=== PATIENT | male | born 1995 | race Caucasian/White ===

== ENCOUNTER 2023-09-06 15:30 | Inpatient (IN) | payer BC ==
[~2023-09-06] VITALS: Ht 182.9 cm; Wt 108.4 kg
[2023-09-06 15:31] VITALS: BP_SYST 83; PULSE 260; RESP 22; TEMP 97; O2SAT 92
[2023-09-06] MEDS ORDERED: AMIODARONE HCL 150 MG/3ML VIAL ONE (15:35)
[2023-09-06] MEDS ORDERED: AMIODARONE HCL 150 MG in D5W 97 ML IV ONE (15:45)
[2023-09-06] MEDS ORDERED: NACL 0.9% 1,000 ML IV ONE (15:45)
[2023-09-06] MEDS ORDERED: ONDANSETRON HCL 4 MG/2 ML VIAL IVP ONE (15:45)
[2023-09-06] MEDS ORDERED: LORazepam 2 MG/ML VIAL IVP ONE (15:45)
[2023-09-06] MEDS ORDERED: PROPOFOL 200MG/ 20ML VIAL (DIPRIVAN) IV ONE (16:00)
[2023-09-06 16:20] LABS: BASOPHILS # (AUTO) 0.1 K/uL (0.0-0.2); BASOPHILS % (AUTO) 0.4 % (0.0-2.0); HEMATOCRIT 39.8 % (36-54); HEMOGLOBIN 12.6 g/dL (14.0-18.0); LYMPHOCYTES # (AUTO) 4.2 K/uL (1.0-5.5); LYMPHOCYTES % (AUTO) 20.2 % (20.5-51.5); MEAN CORPUSCULAR HEMOGLOBIN 28 pg (27-31); MEAN CORPUSCULAR HGB CONC 32 % (32-36); MEAN CORPUSCULAR VOLUME 89 fL (79.0-98.0); MONOCYTES # (AUTO) 0.9 K/uL (0.0-1.0); MONOCYTES % (AUTO) 4.2 % (1.7-9.3); NEUTROPHILS # (AUTO) 15.7 K/uL (1.8-7.7); NEUTROPHILS % (AUTO) 75.2 % (40.0-70.0); PLATELET COUNT (AUTO) 153 K/uL (130-430); RED BLOOD CELL COUNT(AUTO) 4.48 MIL/uL (4.2-6.2); RED CELL DISTRIBUTION WIDTH 13.5 % (9.0-15.0); WHITE BLOOD COUNT (AUTO) 20.9 K/uL (4.8-10.8)
[2023-09-06] MEDS ORDERED: METOPROLOL SUCCINATE 25 MG TAB.SR.24H (TOPROL XL) PO ONE (16:30)
[2023-09-06 16:47] LABS: ANION GAP 15 (5-15); CALCIUM 8.9 mg/dL (8.4-11.0); CARBON DIOXIDE 18 mmol/L (23-29); CHLORIDE 87 mmol/L (98-107); CREATININE 1.84 mg/dL (0.55-1.30); GFR AFRICAN AMERICAN 56 mL/min (>90); GLUCOSE 82 mg/dL (74-106); POTASSIUM 3.4 mmol/L (3.5-5.1); SODIUM SERUM 120 mmol/L (136-145); UREA NITROGEN, BLOOD 39 mg/dL (8-21)
[2023-09-06 16:49] LABS: GFR NON AFRICAN-AMERICAN 46 mL/min (>90)
[2023-09-06] MEDS ORDERED: ASPIRIN 81 MG TAB.CHEW PO ONE (17:00)
[2023-09-06 20:13] LABS: BARBITURATE, URINE NEGATIVE (NEG <=200); BENZODIAZEPINE, URINE NEGATIVE (NEG <=150); CANNABINOID, URINE NEGATIVE (NEG <=50); COCAINE, URINE NEGATIVE (NEG <=150); METHAMPHETAMINES SCREEN,URINE NEGATIVE (NEG <=500); OPIATE, URINE NEGATIVE (NEG <=100); PHENCYCLIDINE SCREEN,URINE NEGATIVE (NEG <=25); URINE AMPHETAMINE NEGATIVE (NEG <=500); URINE METHADONE NEGATIVE (NEG <=200); URINE OXYCODONE SCREEN NEGATIVE (NEG <=100)
[2023-09-06 20:14] LABS: UR TRICYCLIC ANTIDEPRESSANTS NEGATIVE (NEG <=300)
[2023-09-06 22:12] VITALS: BP_SYST 150; PULSE 92; RESP 20; TEMP 100.4; O2SAT 96
[2023-09-06] MEDS ORDERED: FLU VACC QS2023-24(6MOS UP)/PF 0.5 ML/SYR SYRINGE I.M. PRN (22:30)
[2023-09-06] MEDS ORDERED: HYDROcodone/ACETAMIN 5-325 MG TAB (NORCO/ VICODIN) PO PRN (23:00)
[2023-09-06] MEDS ORDERED: ONDANSETRON HCL 4 MG/2 ML VIAL IVP PRN (23:00)
[2023-09-06] MEDS ORDERED: HYDROcodone/ACETAMIN 10-325 MG TAB PO PRN (23:00)
[2023-09-06] MEDS ORDERED: PANTOPRAZOLE SODIUM 40 MG/VIAL (PROTONIX) ONE (23:11)
[2023-09-06] MEDS: traZODone HCL 50 MG TABLET (DESYREL) PO PRN (23:13)
[2023-09-06] MEDS: PANTOPRAZOLE SODIUM 40 MG/VIAL (PROTONIX) IVP SCH (23:13)
[2023-09-06 23:44] VITALS: BP_SYST 136; PULSE 92; RESP 18; TEMP 99; O2SAT 95
[2023-09-07] VITALS (9 sets, daily range): BP systolic 120–139; PULSE 91–104; RESP 16–20; TEMP 97.9–101.5; O2SAT 93–95
[2023-09-07] MEDS ORDERED: cefTRIAXone 1 GM in D5W 50 ML IV SCH ×2
[2023-09-07] MEDS ORDERED: cefTRIAXone 1 GM VIAL ONE (01:11)
[2023-09-07] MEDS: ACETAMINOPHEN 325 MG TABLET PO PRN ×2 (01:50→18:56)
[2023-09-07 02:01] LABS: BILIRUBIN,URINE NEGATIVE (NEGATIVE); BLOOD, URINE NEGATIVE (NEGATIVE); CLARITY/URINE CLEAR (CLEAR); COLOR,URINE YELLOW (YELLOW); GLUCOSE,URINE NEGATIVE (NEGATIVE); KETONES,URINE TRACE (NEGATIVE); LEUKOCYTE ESTERASE ,URINE NEGATIVE (NEGATIVE); NITRITE, URINE NEGATIVE (NEGATIVE); PROTEIN URINE NEGATIVE (NEGATIVE); UROBILINOGEN,URINE 0.2 (0.2-1.0)
[2023-09-07 08:02] LABS: BASOPHILS % (AUTO) 0.1 % (0.0-2.0); HEMOGLOBIN 11.8 g/dL (14.0-18.0); LYMPHOCYTES % (AUTO) 16.7 % (20.5-51.5); MEAN CORPUSCULAR HEMOGLOBIN 29 pg (27-31); MEAN CORPUSCULAR HGB CONC 33 % (32-36); MEAN CORPUSCULAR VOLUME 88 fL (79.0-98.0); MONOCYTES # (AUTO) 0.6 K/uL (0.0-1.0); MONOCYTES % (AUTO) 3.6 % (1.7-9.3); NEUTROPHILS # (AUTO) 14.1 K/uL (1.8-7.7); NEUTROPHILS % (AUTO) 79.6 % (40.0-70.0); PLATELET COUNT (AUTO) 150 K/uL (130-430); RED CELL DISTRIBUTION WIDTH 13.7 % (9.0-15.0); WHITE BLOOD COUNT (AUTO) 17.7 K/uL (4.8-10.8)
[2023-09-07 08:13] LABS: ALBUMIN 3.2 g/dL (3.4-4.8); CALCIUM 7.7 mg/dL (8.4-11.0); CREATININE 1.16 mg/dL (0.55-1.30); PHOSPHORUS 1.4 mg/dL (2.7-4.5); POTASSIUM 3.7 mmol/L (3.5-5.1); TOTAL BILIRUBIN 0.7 mg/dL (0.0-1.0); TOTAL PROTEIN, SERUM 5.8 g/dL (6.4-8.3)
[2023-09-07] MEDS: PANTOPRAZOLE SODIUM 40 MG/VIAL (PROTONIX) IVP SCH (08:30)
[2023-09-07] MEDS ORDERED: METOPROLOL TARTRATE 25 MG TABLET PO ONE (09:30)
[2023-09-07] MEDS ORDERED: ASPIRIN 325 MG TABLET PO ONE (10:30)
[2023-09-07 19:56] LABS: INFLUENZA TYPE A Negative (NEGATIVE); INFLUENZA TYPE B NEGATIVE (NEGATIVE)
[2023-09-07] MEDS: traZODone HCL 50 MG TABLET (DESYREL) PO PRN (21:27)
[2023-09-07] MEDS: METOPROLOL TARTRATE 25 MG TABLET PO SCH (21:29)
[2023-09-07] MEDS: cefTRIAXone 1 GM in D5W 50 ML IV SCH (21:30)
[2023-09-08] VITALS (8 sets, daily range): BP systolic 123–142; PULSE 65–128; RESP 16–18; TEMP 97.1–100.2; O2SAT 93–96
[2023-09-08 06:04] LABS: BASOPHILS % (AUTO) 0.2 % (0.0-2.0); EOSINOPHILS % (AUTO) 0.1 % (0.0-4.0); HEMATOCRIT 38.9 % (36-54); HEMOGLOBIN 12.4 g/dL (14.0-18.0); LYMPHOCYTES # (AUTO) 2.2 K/uL (1.0-5.5); LYMPHOCYTES % (AUTO) 15.2 % (20.5-51.5); MEAN CORPUSCULAR HEMOGLOBIN 29 pg (27-31); MEAN CORPUSCULAR HGB CONC 32 % (32-36); MEAN CORPUSCULAR VOLUME 89 fL (79.0-98.0); MONOCYTES # (AUTO) 0.7 K/uL (0.0-1.0); MONOCYTES % (AUTO) 4.7 % (1.7-9.3); NEUTROPHILS # (AUTO) 11.4 K/uL (1.8-7.7); NEUTROPHILS % (AUTO) 79.8 % (40.0-70.0); PLATELET COUNT (AUTO) 159 K/uL (130-430); RED BLOOD CELL COUNT(AUTO) 4.35 MIL/uL (4.2-6.2); RED CELL DISTRIBUTION WIDTH 13.6 % (9.0-15.0); WHITE BLOOD COUNT (AUTO) 14.3 K/uL (4.8-10.8)
[2023-09-08 06:11] LABS: ERYTHROCYTE SEDIMENTATION RATE 13 MM/HR (0-15)
[2023-09-08 06:40] LABS: CREATININE 0.94 mg/dL (0.55-1.30); PHOSPHORUS 1.6 mg/dL (2.7-4.5); POTASSIUM 3.2 mmol/L (3.5-5.1)
[2023-09-08] MEDS: ACETAMINOPHEN 325 MG TABLET PO PRN ×2 (08:26→23:00)
[2023-09-08] MEDS: METOPROLOL TARTRATE 25 MG TABLET PO SCH ×2 (08:29→22:47)
[2023-09-08] MEDS: PANTOPRAZOLE SODIUM 40 MG/VIAL (PROTONIX) IVP SCH (08:30)
[2023-09-08] MEDS ORDERED: ASPIRIN 81 MG TABLET(ECOTRIN) PO ONE (11:00)
[2023-09-08] MEDS ORDERED: METOPROLOL TARTRATE 5 MG/5 ML VIAL IVP ONE (12:45)
[2023-09-08] MEDS ORDERED: HYDROcodone/ACETAMIN 5-325 MG TAB (NORCO/ VICODIN) PO PRN (17:45)
[2023-09-08] MEDS ORDERED: LORazepam 2 MG/ML VIAL IVP ONE (17:45)
[2023-09-08] MEDS ORDERED: LORazepam 2 MG/ML VIAL IVP PRN (17:45)
[2023-09-08] MEDS: cefTRIAXone 1 GM in D5W 50 ML IV SCH (22:45)
[2023-09-08] MEDS: LORazepam 2 MG/ML VIAL IVP PRN (22:46)
[2023-09-09] VITALS: BP_SYST 135; PULSE 87; RESP 18; TEMP 100.9; O2SAT 96
[2023-09-09 01:10] VITALS: TEMP 97.7
[2023-09-09 07:47] LABS: ALBUMIN 2.9 g/dL (3.4-4.8); CALCIUM 8.2 mg/dL (8.4-11.0); CREATININE 0.88 mg/dL (0.55-1.30); PHOSPHORUS 2.8 mg/dL (2.7-4.5); POTASSIUM 3.4 mmol/L (3.5-5.1); TOTAL BILIRUBIN 0.6 mg/dL (0.0-1.0); TOTAL PROTEIN, SERUM 6.2 g/dL (6.4-8.3)
[2023-09-09 08:11] LABS: BASOPHILS % (AUTO) 0.3 % (0.0-2.0); EOSINOPHILS # (AUTO) 0.1 K/uL (0.0-0.4); EOSINOPHILS % (AUTO) 1.1 % (0.0-4.0); HEMATOCRIT 41.9 % (36-54); HEMOGLOBIN 13.8 g/dL (14.0-18.0); LYMPHOCYTES % (AUTO) 16.5 % (20.5-51.5); MEAN CORPUSCULAR HEMOGLOBIN 30 pg (27-31); MEAN CORPUSCULAR HGB CONC 33 % (32-36); MEAN CORPUSCULAR VOLUME 90 fL (79.0-98.0); MONOCYTES # (AUTO) 1.1 K/uL (0.0-1.0); MONOCYTES % (AUTO) 8.9 % (1.7-9.3); NEUTROPHILS % (AUTO) 73.2 % (40.0-70.0); PLATELET COUNT (AUTO) 195 K/uL (130-430); RED BLOOD CELL COUNT(AUTO) 4.66 MIL/uL (4.2-6.2); RED CELL DISTRIBUTION WIDTH 13.5 % (9.0-15.0); WHITE BLOOD COUNT (AUTO) 12.3 K/uL (4.8-10.8)
[2023-09-09 08:21] VITALS: BP_SYST 129; PULSE 65; RESP 18; TEMP 100; O2SAT 95
[2023-09-09 08:26] LABS: ERYTHROCYTE SEDIMENTATION RATE 21 MM/HR (0-15)
[2023-09-09] MEDS: PANTOPRAZOLE SODIUM 40 MG/VIAL (PROTONIX) IVP SCH (09:05)
[2023-09-09] MEDS ORDERED: iohexoL 350 mgI/mL, 100 ML INFUS..BTL IV ONE (09:05)
[2023-09-09] MEDS: METOPROLOL TARTRATE 25 MG TABLET PO SCH ×2 (09:06→20:58)
[2023-09-09] MEDS: ASPIRIN 81 MG TABLET(ECOTRIN) PO SCH (09:06)
[2023-09-09] MEDS ORDERED: POTASSIUM CHLORIDE 20 MEQ TABLET.ER PO ONE (12:00)
[2023-09-09 12:18] VITALS: BP_SYST 143; PULSE 83; RESP 18; TEMP 98.3; O2SAT 99
[2023-09-09 16:33] VITALS: BP_SYST 125; PULSE 80; RESP 18; TEMP 97.4; O2SAT 97
[2023-09-09] MEDS: LORazepam 2 MG/ML VIAL IVP PRN (17:15)
[2023-09-09 20:00] VITALS: BP_SYST 124; PULSE 88; RESP 17; TEMP 98; O2SAT 98
[2023-09-09] MEDS: DOXYCYCLINE HYCLATE 100 MG CAPSULE PO SCH (20:56)
[2023-09-09] MEDS: traZODone HCL 50 MG TABLET (DESYREL) PO PRN (20:56)
[2023-09-09] MEDS: cefTRIAXone 1 GM in D5W 50 ML IV SCH (21:00)
[2023-09-10] VITALS: BP_SYST 131; PULSE 81; RESP 18; TEMP 97.7; O2SAT 97
[2023-09-10 05:39] LABS: BASOPHILS % (AUTO) 0.3 % (0.0-2.0); EOSINOPHILS # (AUTO) 0.5 K/uL (0.0-0.4); EOSINOPHILS % (AUTO) 5.7 % (0.0-4.0); HEMATOCRIT 44.6 % (36-54); HEMOGLOBIN 14.7 g/dL (14.0-18.0); LYMPHOCYTES # (AUTO) 2.6 K/uL (1.0-5.5); LYMPHOCYTES % (AUTO) 30.1 % (20.5-51.5); MEAN CORPUSCULAR HEMOGLOBIN 29 pg (27-31); MEAN CORPUSCULAR HGB CONC 33 % (32-36); MEAN CORPUSCULAR VOLUME 88 fL (79.0-98.0); MONOCYTES # (AUTO) 1.1 K/uL (0.0-1.0); MONOCYTES % (AUTO) 12.8 % (1.7-9.3); NEUTROPHILS # (AUTO) 4.4 K/uL (1.8-7.7); NEUTROPHILS % (AUTO) 51.1 % (40.0-70.0); PLATELET COUNT (AUTO) 262 K/uL (130-430); RED BLOOD CELL COUNT(AUTO) 5.04 MIL/uL (4.2-6.2); RED CELL DISTRIBUTION WIDTH 14.2 % (9.0-15.0); WHITE BLOOD COUNT (AUTO) 8.7 K/uL (4.8-10.8)
[2023-09-10 06:15] LABS: CREATININE 0.91 mg/dL (0.55-1.30); POTASSIUM 3.7 mmol/L (3.5-5.1)
[2023-09-10 07:17] LABS: ERYTHROCYTE SEDIMENTATION RATE 25 MM/HR (0-15)
[2023-09-10 07:53] VITALS: BP_SYST 130; PULSE 79; RESP 18; TEMP 99; O2SAT 98
[2023-09-10 08:23] VITALS: BP_SYST 142
[2023-09-10] MEDS ORDERED: LEVO-62 PO (08:41)
[2023-09-10] MEDS ORDERED: METO25TA6 PO (08:41)
[2023-09-10] MEDS ORDERED: ASPI-1393 PO (08:41)
[2023-09-10] MEDS: DOXYCYCLINE HYCLATE 100 MG CAPSULE PO SCH (10:02)
[2023-09-10] MEDS: ASPIRIN 81 MG TABLET(ECOTRIN) PO SCH (10:03)
[2023-09-10] MEDS: METOPROLOL TARTRATE 25 MG TABLET PO SCH (10:03)
[2023-09-10] MEDS: PANTOPRAZOLE SODIUM 40 MG/VIAL (PROTONIX) IVP SCH (10:03)
[2023-09-10 10:22] VITALS: BP_SYST 142; PULSE 80; RESP 18; TEMP 99; O2SAT 98
== END 2023-09-10 11:30 | disposition home or self-care (01) | DRG 871 ==
LOC: SED 15:30 → STU 17:34
PROVIDERS: ADMIT Preventive Medicine Preventive Medicine/Occupational Environmental Medicine; ATTEND Preventive Medicine Preventive Medicine/Occupational Environmental Medicine
PROC: 5A2204Z Restoration of Cardiac Rhythm, Single (ICD-10-PCS; principal; 2023-09-06)
DX: A41.9 Sepsis, unspecified organism (principal); E43 Unspecified severe protein-calorie malnutrition; I21.4 Non-ST elevation (NSTEMI) myocardial infarction; J96.00 Acute respiratory failure, unspecified whether with hypoxia or hypercapnia; J18.9 Pneumonia, unspecified organism; E87.1 Hypo-osmolality and hyponatremia; N17.9 Acute kidney failure, unspecified; I47.10 Supraventricular tachycardia, unspecified; F10.139 Alcohol abuse with withdrawal, unspecified; D72.829 Elevated white blood cell count, unspecified; E87.6 Hypokalemia; I11.0 Hypertensive heart disease with heart failure; Z20.822 Contact with and (suspected) exposure to COVID-19; I50.9 Heart failure, unspecified; Y90.9 Presence of alcohol in blood, level not specified; E88.09 Other disorders of plasma-protein metabolism, not elsewhere classified; E83.51 Hypocalcemia; E83.41 Hypermagnesemia; E83.39 Other disorders of phosphorus metabolism; D64.9 Anemia, unspecified; Z68.32 Body mass index [BMI] 32.0-32.9, adult
CPT/HCPCS: 36415; 71045; 71275; 76376; 76770; 80048; 80053; 80307; 81001; 81003; 82435; 82570; 83735; 83880; 83930; 83935; 84100; 84302; 84484; 85025; 85651-TC; 87040; 87070-TC; 87086; 87205-TC; 93005; 93306; 94760; 99291; C9113; G0378; G0482; J0282; J0696; J2060; J2405; J2704; J3490; J7060; Q9967